=== PATIENT | male | born 1995 | race Caucasian/White ===

== ENCOUNTER 2024-07-20 00:10 | Emergency (ER) | payer MEDICAID ==
[~2024-07-20] VITALS: Ht 172.7 cm; Wt 79.4 kg
[2024-07-20 00:19] VITALS: BP 136/78; PULSE 83; RESP 16; TEMP 98.2; O2SAT 97
[2024-07-20 00:25] VITALS: O2SAT 97
--- NOTE | 2024-07-20 00:25 | NUR ---
[place] [facility] WAS CALLED FOR A DOWN PERSON. WHEN THEY ARRIVED PT WAS A&OX4. PT C/O SOB. BREATH SOUNDS CLEAR BILAT. PT O2SAT 97% RA. NO C/O PAIN
[2024-07-20 01:04] VITALS: PULSE 81; RESP 20; O2SAT 93
[2024-07-20] MEDS: ALBUTEROL SULFATE/IPRATROPIU 3 ML SOL IH ONE (01:04)
[2024-07-20 01:07] LABS: BASOPHILS # (AUTO) 0.1 K/uL (0.00-0.22); BASOPHILS % (AUTO) 1.2 % (0.0-2.0); EOSINOPHILS # (AUTO) 0.2 K/uL (0-0.4); EOSINOPHILS % (AUTO) 3.2 % (0.0-4.0); HEMATOCRIT 39.8 % (36-52); HEMOGLOBIN 14.4 g/dL (12.0-18.0); LYMPHOCYTES # (AUTO) 2.8 K/uL (2.0-11.5); LYMPHOCYTES % (AUTO) 41.9 % (20.5-51.1); MEAN CORPUSCULAR HEMOGLOBIN 32 pg (27-31); MEAN CORPUSCULAR HGB CONC 36 g/dL (33-37); MEAN CORPUSCULAR VOLUME 89.2 fL (80-94); MONOCYTES # (AUTO) 0.5 K/uL (0.8-1.0); MONOCYTES % (AUTO) 7.4 % (1.7-9.3); NEUTROPHILS # (AUTO) 3.1 K/uL (1.8-7.7); NEUTROPHILS % (AUTO) 46.3 % (42.2-75.2); PLATELET COUNT (AUTO) 174 K/uL (140-450); RED BLOOD CELL COUNT(AUTO) 4.46 MIL/uL (4.20-6.10); RED CELL DISTRIBUTION WIDTH 13.1 % (11.6-13.7); WHITE BLOOD COUNT (AUTO) 6.6 K/uL (4.8-10.8)
[2024-07-20 01:20] LABS: ANION GAP 10.8 (8-16); CALCIUM 8.5 mg/dL (8.5-10.1); CARBON DIOXIDE 30.1 mmol/L (21-32); CREATININE 1.1 mg/dL (0.6-1.3)
[2024-07-20 01:21] LABS: POTASSIUM 2.9 mmol/L (3.5-5.1)
[2024-07-20] MEDS: NACL 0.9% 1,000 ML IV ONE (01:23)
[2024-07-20 01:34] LABS: ALANINE AMINOTRANSFERASE 32 U/L (12-78); ALBUMIN 3.6 g/dL (3.4-5.0); ALKALINE PHOSPHATASE 63 U/L (50-136); ASPARTATE AMINOTRANSFERASE 16 U/L (15-37); BILIRUBIN,DIRECT 0.1 mg/dL (0.0-0.3); TOTAL BILIRUBIN 0.5 mg/dL (0.0-1.0); TOTAL PROTEIN, SERUM 6.4 g/dL (6.4-8.2)
[2024-07-20 01:37] LABS: D-DIMER < 100 ng/ml (0-400)
[2024-07-20 01:42] LABS: INR 0.97 (0.8-1.2); PARTIAL THROMBOPLASTIN TIME 25.3 secs (22-35.6); PROTHROMBIN TIME 10.2 secs (10.8-13.4)
[2024-07-20] MEDS: methylPREDNISolone SS 125 MG/2 ML VIAL IVP ONE (01:42)
--- NOTE | 2024-07-20 01:47 | NUR ---
swabs collected and sent
[2024-07-20 02:09] LABS: FLU A ANTIGEN negative (NEGATIVE); FLU B ANTIGEN NEGATIVE (NEGATIVE)
--- NOTE | 2024-07-20 02:39 | NUR ---
PT RESTING IN BED. VS STABLE. NO SIGNS OF DISTRESS
[2024-07-20] MEDS: POTASSIUM CHLORIDE 10 MEQ TABER PO ONE ×2 (02:50→02:51)
[2024-07-20 03:01] VITALS: O2SAT 97
[2024-07-20] MEDS ORDERED: PRED20TA5 PO (03:22)
[2024-07-20] MEDS ORDERED: POTA10TA70 PO (03:22)
[2024-07-20] MEDS ORDERED: ALBU0.0912 IH (03:22)
[2024-07-20] MEDS ORDERED: AZIT250T4 PO (03:22)
[2024-07-20 03:26] VITALS: BP 124/57; PULSE 64; RESP 20; TEMP 98.2; O2SAT 97
--- NOTE | 2024-07-20 03:26 | NUR ---
Patient discharged with v/s stable. Written and verbal after care instructions given and explained. Patient verbalized understanding. Ambulatory with steady gait. All questions addressed prior to discharge. Advised to follow up with PMD.
== END 2024-07-20 03:26 | disposition home or self-care (01) ==
LOC: MED 00:10
DX: J45.901 Unspecified asthma with (acute) exacerbation (principal); E87.6 Hypokalemia; Z20.822 Contact with and (suspected) exposure to COVID-19; Z79.2 Long term (current) use of antibiotics; Z79.899 Other long term (current) drug therapy
CPT/HCPCS: 36415; 71045; 80048; 80076; 83880; 84484; 85025; 85379; 85610; 85730; 87426; 87804; 93005; 94640; 96361; 96374; 99285; J2919; J7030; Q0092